=== PATIENT | male | born 1980 | race Hispanic/Latino ===

== ENCOUNTER → 2017-04-05 | Outpatient (CLI) | payer OTHER ==
--- NOTE | 2017-04-05 10:30 | REP ---
RIGHT SHOULDER, THREE VIEWS: HISTORY: Pain. There is no acute fracture or dislocation. The joint spaces are normal in appearance. IMPRESSION: There is no acute fracture or dislocation. Signed by Ata Adkins MD 04/05/2017 10:41 A
== END ==
LOC: M WUC 08:47
PROVIDERS: ATTEND Physician Assistant
DX: M25.511 Pain in right shoulder (principal)

== ENCOUNTER → 2019-02-24 | Outpatient (CLI) | payer OTHER ==
[~2019-02-24] MED LIST: KEFL500C17 PO
[2019-02-24 21:04] LABS: ALBUMIN 3.8 GM/DL (3.2-5.2); ALT/SGPT 64 U/L (12-78); BILIRUBIN,DIRECT 0.2 MG/DL (0.0-0.2); BILIRUBIN,TOTAL 0.5 MG/DL (0.2-1.0); BLOOD UREA NITROGEN 12 MG/DL (7-18); CALCIUM LEVEL 8.1 MG/DL (8.5-10.1); CARBON DIOXIDE LEVEL 27 MEQ/L (21-32); CHLORIDE LEVEL 103 MEQ/L (98-107); CREATININE FOR GFR 1.08 MG/DL (0.70-1.30); FREE T4 0.95 NG/DL (0.76-1.46); GLOMERULAR FILTRATION RATE > 60.0 (>60); GLUCOSE, FASTING 104 MG/DL (70-100); POTASSIUM SERUM 4.4 MEQ/L (3.5-5.1); SODIUM LEVEL 137 MEQ/L (136-145); TOTAL PROTEIN 7.3 GM/DL (6.4-8.2)
[2019-02-24 21:10] LABS: BASO % 0.8 % (0.0-1.0); EOS % 0.2 % (0.0-3.0); HEMATOCRIT 44.3 % (42.0-52.0); HEMOGLOBIN 14.7 g/dl (13.5-17.5); LYMPH % 21.6 % (24.0-44.0); MEAN CORPUSCULAR HEMOGLOBIN 28.7 pg (27.0-33.0); MEAN CORPUSCULAR HGB CONC 33.2 g/dl (32.0-36.5); MEAN CORPUSCULAR VOLUME 86.4 fl (80.0-96.0); MONO # 0.9 10^3/uL (0.0-0.8); MONO % 17.8 % (0.0-5.0); NEUTROPHILS # 2.8 10^3/uL (1.8-7.7); NEUTROPHILS % 59.6 % (36.0-66.0); PLATELET COUNT, AUTOMATED 139 10^3/uL (150-450); RED BLOOD COUNT 5.13 10^6/uL (4.30-6.10); WHITE BLOOD COUNT 4.8 10^3/uL (4.0-10.0)
[2019-02-26 11:00] LABS: HEPATITIS B SURFACE ANTIGEN NEGATIVE (NEGATIVE)
[2019-02-26 11:26] LABS: HEPATITIS C VIRUS ABY INDEX 0.1 INDEX (<0.8)
[2019-02-26 11:27] LABS: HEPATITIS B CORE ANTIBODY IGM NEGATIVE (NEGATIVE)
[2019-02-26 11:29] LABS: HEPATITIS A ANTIBODY IGM NEGATIVE (NEGATIVE)
[2019-02-27 08:58] LABS: EBV VIRAL CAPSID AG IgG >600.0 U/mL (0.0-17.9); EBV VIRAL CAPSID AG IgM <36.0 U/mL (0.0-35.9); Lyme Disease IgG Ab 18 kDa Ban Absent (.); Lyme Disease IgG Ab 23 kDa Ban Absent (.); Lyme Disease IgG Ab 28 kDa Ban Absent (.); Lyme Disease IgG Ab 30 kDa Ban Absent (.); Lyme Disease IgG Ab 39 kDa Ban Absent (.); Lyme Disease IgG Ab 41 kDa Ban Absent (.); Lyme Disease IgG Ab 45 kDa Ban Absent (.); Lyme Disease IgG Ab 58 kDa Ban Absent (.); Lyme Disease IgG Ab 66 kDa Ban Absent (.); Lyme Disease IgG Ab 93 kDa Ban Absent (.); Lyme Disease IgG West Blot Int Negative (.); Lyme Disease IgG/IgM Antibodie <0.91 ISR (0.00-0.90); Lyme Disease IgM Ab 23 kDa Ban Present (.); Lyme Disease IgM Ab 39 kDa Ban Absent (.); Lyme Disease IgM Ab 41 kDa Ban Absent (.); Lyme Disease IgM Ab Quantitati 1.56 index (0.00-0.79); Lyme Disease IgM West Blot Int Negative (.)
== END ==
LOC: M WUC 17:34
PROVIDERS: ATTEND Physician Assistant
DX: R50.9 Fever, unspecified (principal)

== ENCOUNTER 2019-03-28 09:02 | Emergency (ER) | payer OTHER ==
[~2019-03-28] VITALS: Ht 180.3 cm; Wt 86.4 kg
[2019-03-28 10:00] LABS: HEMATOCRIT 42.2 % (42.0-52.0); HEMOGLOBIN 14.2 g/dl (13.5-17.5); MEAN CORPUSCULAR HEMOGLOBIN 28.1 pg (27.0-33.0); MEAN CORPUSCULAR HGB CONC 33.6 g/dl (32.0-36.5); MEAN CORPUSCULAR VOLUME 83.6 fl (80.0-96.0); PLATELET COUNT, AUTOMATED 174 10^3/uL (150-450); RED BLOOD COUNT 5.05 10^6/uL (4.30-6.10); WHITE BLOOD COUNT 5.8 10^3/uL (4.0-10.0)
[2019-03-28 10:56] LABS: ERYTHROCYTE SEDIMENTATION RATE 3 mm/hr (0-15)
[2019-03-28] MEDS ORDERED: KEFL500C17 PO (11:00)
[2019-03-28 11:10] VITALS: BP 125/82
[2019-04-01 00:07] LABS: Lyme Disease IgG Ab 18 kDa Ban Absent (.); Lyme Disease IgG Ab 23 kDa Ban Present (.); Lyme Disease IgG Ab 28 kDa Ban Absent (.); Lyme Disease IgG Ab 30 kDa Ban Absent (.); Lyme Disease IgG Ab 39 kDa Ban Present (.); Lyme Disease IgG Ab 41 kDa Ban Present (.); Lyme Disease IgG Ab 45 kDa Ban Absent (.); Lyme Disease IgG Ab 58 kDa Ban Absent (.); Lyme Disease IgG Ab 66 kDa Ban Absent (.); Lyme Disease IgG Ab 93 kDa Ban Absent (.); Lyme Disease IgG West Blot Int Negative (.); Lyme Disease IgG/IgM Antibodie 3.01 ISR (0.00-0.90); Lyme Disease IgM Ab 23 kDa Ban Present (.); Lyme Disease IgM Ab 39 kDa Ban Present (.); Lyme Disease IgM Ab 41 kDa Ban Present (.); Lyme Disease IgM Ab Quantitati 8.35 index (0.00-0.79); Lyme Disease IgM West Blot Int Positive (.)
== END 2019-03-28 11:12 | disposition home or self-care (01) ==
LOC: M ED 09:02
DX: L03.116 Cellulitis of left lower limb (principal)

== ENCOUNTER → 2020-08-02 | Outpatient (REF) | payer OTHER ==
[2020-08-02 17:10] LABS: MONO SCRN NEGATIVE (NEGATIVE)
== END ==
LOC: M SFHCCLAY 10:46
PROVIDERS: ATTEND Family Medicine
DX: J03.90 Acute tonsillitis, unspecified (principal)

== ENCOUNTER 2020-09-17 02:06 | Emergency (ER) | payer OTHER ==
[~2020-09-17] VITALS: Ht 27.9 cm; Wt 91.1 kg
[2020-09-17 02:07] VITALS: BP 140/85
--- OUTSIDE RECORDS SUMMARY | 2020-09-17 02:11 | CCD ---
Author Author [facility] Organization [facility] Address Unknown Phone Unavailable Support Name Relationship Address Phone [place] [address] [facility] Next Of Kin [address] [place] [address] [facility] POLICE Next Of Kin [address] [place] [address] [facility] [place] [place] [address] [place] [address] [place] [address] Unavailable Re-disclosure Warning The records that you are about to access may contain information from federally-assisted alcohol or drug abuse programs. If such information is present, then the following federally mandated warning applies: This information has been disclosed to you from records protected by federal confidentiality rules (42 CFR part 2). The federal rules prohibit you from making any further disclosure of this information unless further disclosure is expressly permitted by the written consent of the person to whom it pertains or as otherwise permitted by 42 CFR part 2. A general authorization for the release of medical or other information is NOT sufficient for this purpose. The Federal rules restrict any use of the information to criminally investigate or prosecute any alcohol or drug abuse patient.The records that you are about to access may contain highly sensitive health information, the redisclosure of which is protected by Article 27-F of the [facility] Public Health law. If you continue you may have access to information: Regarding HIV / AIDS; Provided by facilities licensed or operated by the [facility] Office of Mental Health; or Provided by the [facility] Office for People With Developmental Disabilities. If such information is present, then the following [facility] mandated warning applies: This information has been disclosed to you from confidential records which are protected by state law. State law prohibits you from making any further disclosure of this information without the specific written consent of the person to whom it pertains, or as otherwise permitted by law. Any unauthorized further disclosure in violation of state law may result in a fine or snf sentence or both. A general authorization for the release of medical or other information is NOT sufficient authorization for further disc losure. Family History Family Member Name Family Member Gender Family Member Status Date o f Status Description Data Source(s) Unknown Unknown Problem MEDENT ([facility]) Unknown Male Problem MEDENT ([facility]) Unknown Female Encounters Encounter Providers Location Date Indications Data Source(s ) Outpatient [address] [facility] [address] 08/02/2020 12:00:00 AM EST eCW1 (Merged With [facility]) Unknown [address] [facility] [address] 08/02/2020 12:00:00 AM EST eCW1 (Merged With [facility]) Unknown [address] [facility] [address] 07/08/2020 12:00:00 AM EST eCW1 (Merged With [facility]) Outpatient [address] [facility] [address] 07/07/2020 12:00:00 AM EST eCW1 (Merged With [facility]) Unknown [address] [facility] [id number] 07/07/2020 12:00:00 AM EST eCW1 (Merged With [facility]) [facility] [address] [facility] [place] [address] 05/17/2020 12:00:00 AM EDT eCW1 (Merged With [facility]) Outpatient [address] [facility] [id number] 02/16/2020 12:00:00 AM EDT eCW1 (Merged With [facility]) Medications Medication Brand Name Start Date Product Form Dose Route Admi nistrative Instructions Pharmacy Instructions Status Indications Reaction Description Data Source(s) Metronidazole 0.0075 MG/MG Vaginal Gel Metronidazole 0 .75 % Metronidazole 0.75 % 02/16/2020 12:00:00 AM EDT 1.0 {application} suspended Metronidazole 0.75 % eCW1 (Pending Sale To [facility]) Metronidazole 0.0075 MG/MG Vaginal Gel Metronidazole 0 .75 % Metronidazole 0.75 % 02/16/2020 12:00:00 AM EDT 1.0 {application} active Metronidazole 0.75 % eCW1 (Pending Sale To [facility]) Metronidazole 0.0075 MG/MG Vaginal Gel Metronidazole 0 .75 % Metronidazole 0.75 % 02/16/2020 12:00:00 AM EDT 1.0 {application} suspended Metronidazole 0.75 % eCW1 (Pending Sale To [facility]) Metronidazole 0.0075 MG/MG Vaginal Gel Metronidazole 0 .75 % Metronidazole 0.75 % 02/16/2020 12:00:00 AM EDT 1.0 {application} active Metronidazole 0.75 % eCW1 (Pending Sale To [facility]) Metronidazole 0.0075 MG/MG Vaginal Gel Metronidazole 0 .75 % Metronidazole 0.75 % 02/16/2020 12:00:00 AM EDT 1.0 {application} active Metronidazole 0.75 % eCW1 (Pending Sale To [facility]) Metronidazole 0.0075 MG/MG Vaginal Gel Metronidazole 0 .75 % Metronidazole 0.75 % 02/16/2020 12:00:00 AM EDT 1.0 {application} active Metronidazole 0.75 % eCW1 (Pending Sale To [facility]) Insurance Providers Payer name Policy type / Coverage type Policy ID Covered constitution party ID Covered constitution party's relationship to fleming Policy Fleming Plan Information [facility] [id number] SP [id number] [facility] [id number] SP [id number] [facility] [id number] S [id number] [facility] Health Maintenance Organization (HMO) [id number] Self [id number] ANSI-Commercial [id number] ANSI-Commercial [id number] ANSI-Commercial [id number] ANSI-Commercial [id number] ANSI-Commercial [id number] ANSI-Commercial [id number] [facility] Health Maintenance Organization (O) [id number] Self [id number] [facility] Health Maintenance Organization ([facility]) [id number] Self [id number] ANSI-Commercial [id number] ANSI-Commercial [id number] ANSI-Commercial [id number] ANSI-Commercial [id number] ANSI-Commercial [id number] ANSI-Commercial [id number] Umr Commercial [id number] Self [id number] Umr Commercial [id number] Self [id number] ANSI-Commercial [id number] [employer] [id number] 0 [id number] [employer] PPO O [id number] S [id number] [employer] Medigap Part B [id number] Self [id number] [employer] Risk MGMNT Román [employer] Workers Compensation [id number] Self [id number] [employer] [id number] SP [id number] [employer] Medigap Part B [id number] Self [id number] [employer] Risk MGMNT Román [employer] Workers Compensation [id number] Self [id number] [employer] Workers Compensation Self [employer] Commercial Self [employer] Commercial Self Results ID Date Data Source GROUP A STREP CULTURE 08/02/2020 12:00:00 AM EST eCW1 ([facility]) Name Value Range Interpretation Code Description Data Oma rce(s) Supporting Document(s) GROUP A STREP CULTURE eCW1 ([facility]) ID Date Data Source MONO - MONO SCREEN 08/02/2020 12:00:00 AM EST eCW1 ([facility]) Name Value Range Interpretation Code Description Data Oma rce(s) Supporting Document(s) NEGATIVE NEGATIVE MONO SCRN eCW1 ([facility]) ID Date Data Source 309 07/07/2020 12:00:00 AM EST [facility] Name Value Range Interpretation Code Description Data Oma rce(s) Supporting Document(s) SARS-CoV2 Rapid Antigen [facility] This lab was ordered by [facility] and reported by [facility]. Procedure Vital Signs ID Date Data Source UNK Name Value Range Interpretation Code Description Data Source(s) Diastolic blood pressure 87 mm[Hg] 87 mm[Hg] eCW1 (Pending Sale To [facility]) Systolic blood pressure 140 mm[Hg] 140 mm[Hg] e CW1 (Pending Sale To [facility]) Body temperature 98.2 [degF] 98.2 [degF] eCW1 ( Pending Sale To [facility]) Respiratory rate 18 /min 18 /min eCW1 ([facility]) Heart rate 74 /min 74 /min eCW1 ([facility]) Body mass index (BMI) [Ratio] 28.65 kg/m2 28.65 kg/m2 eCW1 (Pending Sale To [facility]) Body height 69 [in_i] 69 [in_i] eCW1 ([facility]) Body weight [lb_av] eCW1 ([facility]) Body temperature 99.9 [degF] 99.9 [degF] eCW1 ( Pending Sale To [facility]) Respiratory rate 18 /min 18 /min eCW1 ([facility]) Heart rate 85 /min 85 /min eCW1 ([facility]) Body mass index (BMI) [Ratio] 28.94 kg/m2 28.94 kg/m2 eCW1 (Pending Sale To [facility]) Body height 69 [in_i] 69 [in_i] eCW1 ([facility]) Body weight [lb_av] eCW1 ([facility]) Diastolic blood pressure 83 mm[Hg] 83 mm[Hg] eCW1 (Pending Sale To [facility]) Systolic blood pressure 128 mm[Hg] 128 mm[Hg] e CW1 (Pending Sale To [facility]) Body temperature 99 [degF] 99 [degF] eCW1 ([facility]) Respiratory rate 18 /min 18 /min eCW1 ([facility]) Heart rate 75 /min 75 /min eCW1 ([facility]) Body mass index (BMI) [Ratio] 28.94 kg/m2 28.94 kg/m2 eCW1 (Pending Sale To [facility]) Body height 69 [in_i] 69 [in_i] eCW1 ([facility]) Body weight 196 [lb_av] 196 [lb_av] eCW1 ([facility]) Patient Treatment Plan of Care Planned Activity Planned Date Details Description Data Source (s) Metronidazole 0.0075 MG/MG Vaginal Gel 02/16/2020 12:00:00 AM EDT eCW1 (Pending Sale To [facility])
--- OUTSIDE RECORDS SUMMARY | 2020-09-17 02:11 | CCD ---
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 Role Phone Carolyne Emerson Unavailable PROBLEMS Type Condition ICD9-CM Code [id number] Code Onset Dates Condition S tatus SNOMED Code Notes Problem Seasonal allergies J30.2 Active 277482185 Problem Other atopic dermatitis L20.89 Active 07390401 Problem Internal hemorrhoids K64.8 Active 84421825 ALLERGIES No Known Allergies ENCOUNTERS from 1980 to 2020-08-10 Encounter Location Date Provider Diagnosis [facility] [address] [place] [address] Jul Carolyne Emerson Exudative tonsillitis J03.90 IMMUNIZATIONS No Information SOCIAL HISTORY Sex Assigned At : Social History Observation Description Sex Assigned At Unknown Education: Question Answer Notes Level of Education: Finished High School Audit Question Answer Notes Total Score: 0 Interpretation: Alcohol Education Language: Question Answer Notes Languages spoken: Guyanese Episcopal: Question Answer Notes Episcopal religiou, No religio us beliefs that would impact health care. Sexual Hx: Question Answer Notes Had sex in the last 12 months (vaginal, oral, or anal)? Yes Have you ever had an STD? No with Women only Use protection? Yes How often? All of the time Drug and Alcohol Question Answer Notes Total Score: 0 Interpretation: No problems reported Alcohol Screening: Question Answer Notes Did you have a drink containing alcohol in the past year? No Points 0 Interpretation Negative REASON FOR REFERRAL No Information VITAL SIGNS Weight 194 lbs lbs Jul, Height 69 in Jul, BMI 28.65 kg/m2 Jul, Heart Rate 74 /min Jul, Respiratory Rate 18 /min Jul, Temperature 98.2 degrees Fahrenheit Jul, Oximetry 100%ra Jul, Blood pressure systolic 140 mm Hg Jul, Blood pressure diastolic 87 mm Hg Jul, MEDICATIONS Medication SIG (Take, Route, Frequency, Duration) Notes Start Da te End Date Status Metronidazole 0.75 % 1 application Externally Twice a day for 14 day(s) Jan, Not-Taking PROCEDURES No Information RESULTS Component Value Reference Range MONO - MONO SCREEN Reviewed date:08/11/2020 07:08:15 Interpretation:Normal Performing Lab:[facility], [facility] [address] [address] , ,[place] [address] MONO SCRN NEGATIVE NEGATIVE GROUP A STREP CULTURE Reviewed date:08/11/2020 07:08:15 Interpretation:Normal Performing Lab:[facility], [facility] [address] [address] , ,[place] [address] Rapid Strep (Angela Strep A+ KEATON) Reviewed date:08/11/2020 07:08:15 Interpretation:Normal Performing Lab:[facility], ,[place] [address] Internal Controls Performed (Y/N) yes Rapid Strep (Angela Strep A+ KEATON) Result (Positive/Negative) negative REASON FOR VISIT white patches in mouth MEDICAL (GENERAL) HISTORY Type Description Date Medical History Internal hemorrhoids Medical History Lyme: summer 2018 Medical History COVID + (06/2020) Surgical History EGD 05/2016 Surgical History Colonoscopy 05/2016 Goals Section No Information Health Concerns No Information MEDICAL EQUIPMENT No Information MENTAL STATUS No Information FUNCTIONAL STATUS No Information ASSESSMENTS Encounter Date Diagnosis Assessment Notes Treatment Notes Treatm ent Clinical Notes Jul, Exudative tonsillitis (ICD-10 - J03.90) Patient evaluated with rapid strep. Rapid strep negative. Throat culture will be sent. Patient will also be evaluated with mono screen. Patient was counseled to monitor for any other symptoms. This is likely result of a viral infection. Further evaluation if symptoms worsen. PLAN OF TREATMENT Treatment Notes Assessment Notes Clinical Notes Exudative tonsillitis Patient evaluated with rapid strep. Rapid strep negative. Throat culture will be sent. Patient will also be evaluated with mono screen. Patient was counseled to monitor for any other symptoms. This is likely result of a viral infection. Further evaluation if symptoms worsen. Treatment Notes Test Name Order Date GROUP A STREP CULTURE 2020-08-10 Rapid Strep (Angela Strep A+ KEATON) 2020-08-10 MONO - MONO SCREEN 2020-08-10 Next Appt Details 04/2021: [place] Reason: Provider Name:Carolyne Idania, 2021-04 03:30:00 PM, [address] [place], [address], Insurance Providers Payer Name Payer Address Payer Phone Insured Name Patient Relati onship to Insured Coverage Start Date Coverage End Date [facility] [id number] [facility] [address] СВЕТЛАНА MARTI self
--- OUTSIDE RECORDS SUMMARY | 2020-09-17 02:11 | CCD ---
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 Name Role Phone Zen Ahmadi Unavailable PROBLEMS Type Condition ICD9-CM Code SSC96-MM Code Onset Dates Condition S tatus SNOMED Code Notes Problem Seasonal allergies J30.2 Active 317818212 Problem Other atopic dermatitis L20.89 Active 03365680 Problem Internal hemorrhoids K64.8 Active 42361520 ALLERGIES No Known Allergies ENCOUNTERS from 1980 to 2020-07-07 Encounter Location Date Provider Diagnosis [facility] [address] [place] [address] Jun Zen Ahmadi IMMUNIZATIONS No Information SOCIAL HISTORY Sex Assigned At : Social History Observation Description Sex Assigned At Unknown Education: Question Answer Notes Level of Education: Finished High School Audit Question Answer Notes Total Score: 0 Interpretation: Alcohol Education Language: Question Answer Notes Languages spoken: Icelandic Buddhism: Question Answer Notes Buddhism religiou, No religio us beliefs that would [...] REASON FOR REFERRAL No Information VITAL SIGNS No information MEDICATIONS Medication SIG (Take, Route, Frequency, Duration) Start Date En d Date Status Metronidazole 0.75 % 1 application Externally Twice a day fo r 14 day(s) Jan, Active PROCEDURES No Information RESULTS No Results REASON FOR VISIT fever MEDICAL (GENERAL) HISTORY Type Description Date Medical History Internal hemorrhoids Medical History Lyme: summer 2018 Surgical History EGD 05/2016 Surgical History Colonoscopy 05/2016 Goals Section No Information Health Concerns No Information MEDICAL EQUIPMENT No Information MENTAL STATUS No Information FUNCTIONAL STATUS No Information ASSESSMENTS No Information PLAN OF TREATMENT No Information Insurance Providers Payer Name Payer Address Payer Phone Insured Name Patient Relati onship to Insured Coverage Start Date Coverage End Date [facility] [place] [id number] [facility] [address] СВЕТЛАНА MARTI self
--- OUTSIDE RECORDS SUMMARY | 2020-09-17 02:11 | CCD ---
Author Author [facility] Organization [facility] Address Unknown Phone Unavailable Care Team Providers Care Slip Cover Maker Name Role Phone Carolyne Emerson Unavailable PROBLEMS Type Condition ICD9-CM Code AEG79-QI Code Onset Dates Condition S tatus SNOMED Code Notes Problem Seasonal allergies J30.2 Active 308544500 Problem Other atopic dermatitis L20.89 Active 20281558 Problem Internal hemorrhoids K64.8 Active 90077266 ALLERGIES No Known Allergies ENCOUNTERS from 1980 to 2020-07-13 Encounter Location Date Provider Diagnosis [facility] [address] [place] [address] Jun Carolyne Emerson Fever, unspecified fever cause R50.9 IMMUNIZATIONS No Information SOCIAL HISTORY Sex Assigned At : Social History Observation Description Sex Assigned At Unknown Education: Question Answer Notes Level of Education: Finished High School Audit Question Answer Notes Total Score: 0 Interpretation: Alcohol Education Language: Question Answer Notes Languages spoken: Greenlandic Sikhism: Question Answer Notes Sikhism religiou, No religio us beliefs that would [...] FOR REFERRAL No Information VITAL SIGNS Weight 196 lbs lbs Jun, Height 69 in Jun, BMI 28.94 kg/m2 Jun, Heart Rate 85 /min Jun, Respiratory Rate 18 /min Jun, Temperature 99.9 degrees Fahrenheit Jun, Oximetry 97%ra Jun, MEDICATIONS Medication SIG (Take, Route, Frequency, Duration) Notes Start Da te End Date Status Metronidazole 0.75 % 1 application Externally Twice a day for 14 day(s) Jan, Active PROCEDURES No Information RESULTS Component Value Reference Range Rapid Flu (Angela Influenza A+B KEATON) Reviewed date:07/07/2020 11:33:21 Interpretation: Performing Lab:[facility], [place] [address] Internal Controls Performed (Y/N) yes Result A (Positive/Negative) negative Result B (Positive/Negative) negative REASON FOR VISIT fever MEDICAL (GENERAL) HISTORY Type Description Date Medical History Internal hemorrhoids Medical History Lyme: summer 2018 Surgical History EGD 05/2016 Surgical History Colonoscopy 05/2016 Goals Section No Information Health Concerns No Information MEDICAL EQUIPMENT No Information MENTAL STATUS No Information FUNCTIONAL STATUS No Information ASSESSMENTS Encounter Date Diagnosis Assessment Notes Treatment Notes Treatm ent Clinical Notes Jun, Fever, unspecified fever cause (ICD-10 - R50.9) Rapid flu test negative. Patient was offered a COVID test, he declined testing saying that he would go to [facility] urgent [facility] to get a rapid test. He was asked to call our office after he has testing done with testing results. PLAN OF TREATMENT Treatment Notes Assessment Notes Clinical Notes Fever, unspecified fever cause Rapid flu test negative. Patient was offered a COVID test, he declined testing saying that he would go to [facility] urgent care to get a rapid test. He was asked to call our office after he has testing done with testing results. Next Appt Details as scheduled Reason: Insurance Providers Payer Name Payer Address Payer Phone Insured Name Patient Relati onship to Insured Coverage Start Date Coverage End Date [facility] [place] [place] [address] [facility] [address] СВЕТЛАНА MARTI
--- OUTSIDE RECORDS SUMMARY | 2020-09-17 02:11 | CCD ---
Author Author [facility] Organization [facility] Address Unknown Phone Unavailable Care Team Providers Care Eating Disorder Specialist Name Role Phone Carolyne Emerson Unavailable PROBLEMS Type Condition ICD9-CM Code XIL98-KE Code Onset Dates Condition S tatus SNOMED Code Notes Problem Seasonal allergies J30.2 Active 968508713 Problem Other atopic dermatitis L20.89 Active 15932897 Problem Internal hemorrhoids K64.8 Active 93677190 ALLERGIES No Known Allergies ENCOUNTERS from 1980 to 2020-07-11 Encounter Location Date Provider Diagnosis [facility] [address] [place] [address] Jun Carolyne Emerson IMMUNIZATIONS No Information SOCIAL HISTORY Sex Assigned At : Social History Observation Description Sex Assigned At Unknown Education: Question Answer Notes Level of Education: Finished High School Audit Question Answer Notes Total Score: 0 Interpretation: Alcohol Education Language: Question Answer Notes Languages spoken: Brazilian Lutheran: Question Answer Notes Lutheran religiou, No religio us beliefs that would [...] Information RESULTS No Results REASON FOR VISIT positive covid MEDICAL (GENERAL) HISTORY Type Description Date Medical [...] Insured Coverage Start Date Coverage End Date [facility] [id number] [facility] [address] СВЕТЛАНА MARTI self
--- OUTSIDE RECORDS SUMMARY | 2020-09-17 02:11 | CCD ---
Author Author [facility] Organization [facility] Address Unknown Phone Unavailable Care Team Providers Care Member Certification Manager Name Role Phone Carolyne Emerson Unavailable PROBLEMS Type Condition ICD9-CM Code [id number] Code Onset Dates Condition S tatus SNOMED Code Notes Problem Seasonal allergies J30.2 Active 622253690 Problem Other atopic dermatitis L20.89 Active 03462027 Problem Internal hemorrhoids K64.8 Active 69355111 ALLERGIES No Known Allergies ENCOUNTERS from 1980 to 2020-08-02 Encounter Location Date Provider Diagnosis [facility] [address] [place] [address] Jul Carolynemamie Dowoelucianan IMMUNIZATIONS No Information SOCIAL HISTORY Sex Assigned At : Social History Observation Description Sex Assigned At Unknown Education: Question Answer Notes Level of Education: Finished High School Audit Question Answer Notes Total Score: 0 Interpretation: Alcohol Education Language: Question Answer Notes Languages spoken: Eritrean Pentecostal: Question Answer Notes Pentecostal religiou, No religio us beliefs that would [...] day(s) Jan, Not-Taking PROCEDURES No Information RESULTS No Results REASON FOR VISIT white patches in mouth MEDICAL (GENERAL) HISTORY Type Description Date Medical History Internal hemorrhoids Medical History Lyme: summer 2018 Medical History COVID + (06/2020) Surgical History EGD 05/2016 Surgical History Colonoscopy 05/2016 Goals Section No Information Health Concerns No Information MEDICAL EQUIPMENT No Information MENTAL STATUS No Information FUNCTIONAL STATUS No Information ASSESSMENTS No Information PLAN OF TREATMENT Next Appt Details Provider Name:Carolyne Emerson, 2021-04 03:30:00 PM, [address] [place], [address], Insurance Providers Payer Name Payer Address Payer Phone Insured Name Patient Relati onship to Insured Coverage Start Date Coverage End Date [facility] [id number] [facility] [id number] СВЕТЛАНА HERNANDEZ
--- OUTSIDE RECORDS SUMMARY | 2020-09-17 02:59 | CCD ---
Author Author [facility] Organization [facility] Address Unknown Phone Unavailable Support Name Relationship Address Phone [place] [address] [facility] Next Of Kin [address] [place] [address] [facility] POLICE Next Of [place] [address] [place] [address] [facility] [address] [place] [address] [place] [address] Unavailable Re-disclosure Warning The records that you [...] is protected by Article 27-F of the [facility] Public Health law. If you continue you may have access to information: Regarding HIV / AIDS; Provided by facilities licensed or operated by the [facility] Office of Mental Health; or Provided by the [facility] Office for People With Developmental Disabilities. If such information is present, then the following [facility] mandated warning applies: This information has [...] law may result in a fine or chcf sentence or both. A general authorization for the release of medical or other information is NOT sufficient authorization for further disc losure. Family History Family Member Name Family Member Gender Family Member Status Date o f Status Description Data Source(s) Unknown Unknown Problem MEDENT ([facility]) Unknown Male Problem MEDENT ([facility]) Unknown Female Encounters Encounter Providers Location Date Indications Data Source(s ) Outpatient [address] [facility] [id number] 08/02/2020 12:00:00 AM EST [facility] Unknown [address] [facility] [id number] 08/02/2020 12:00:00 AM EST [facility]) Unknown [address] [facility] [id number] 07/08/2020 12:00:00 AM EST [facility]CW1 [facility]) Outpatient [address] [facility] [id number] 07/07/2020 12:00:00 AM EST [facility]CW1 [facility]) Unknown [address] [facility] [id number] 07/07/2020 12:00:00 AM EST [facility]CW1 [facility]) [facility] [address] [facility] [place] [id number] 05/17/2020 12:00:00 AM EDT eCW1 [facility]) Outpatient [address] [facility] [id number] 02/16/2020 12:00:00 AM EDT [facility]CW1 [facility]) Medications Medication Brand Name Start Date Product Form Dose Route Admi nistrative Instructions Pharmacy Instructions Status Indications Reaction Description Data Source(s) Metronidazole 0.0075 MG/MG Vaginal Gel Metronidazole 0 .75 % Metronidazole 0.75 % 02/16/2020 12:00:00 AM EDT 1.0 {application} suspended Metronidazole 0.75 % eCW1 ([facility]) Metronidazole 0.0075 MG/MG Vaginal Gel Metronidazole 0 .75 % Metronidazole 0.75 % 02/16/2020 12:00:00 AM EDT 1.0 {application} active Metronidazole 0.75 % eCW1 ([facility]) Metronidazole 0.0075 MG/MG Vaginal Gel Metronidazole 0 .75 % Metronidazole 0.75 % 02/16/2020 12:00:00 AM EDT 1.0 {application} suspended Metronidazole 0.75 % eCW1 ([facility]) Metronidazole 0.0075 MG/MG Vaginal Gel Metronidazole 0 .75 % Metronidazole 0.75 % 02/16/2020 12:00:00 AM EDT 1.0 {application} active Metronidazole 0.75 % eCW1 ([facility]) Metronidazole 0.0075 MG/MG Vaginal Gel Metronidazole 0 .75 % Metronidazole 0.75 % 02/16/2020 12:00:00 AM EDT 1.0 {application} active Metronidazole 0.75 % eCW1 ([facility]) Metronidazole 0.0075 MG/MG Vaginal Gel Metronidazole 0 .75 % Metronidazole 0.75 % 02/16/2020 12:00:00 AM EDT 1.0 {application} active Metronidazole 0.75 % eCW1 ([facility]) Insurance Providers Payer name Policy type / Coverage type Policy ID Covered constitution party ID Covered constitution party's relationship to fleming Policy Fleming Plan Information [facility] [id number] SP [id number] [facility] [id number] SP [id number] [facility] [id number] S [id number] [facility] Health Maintenance Organization (HMO) [id number] Self [id number] ANSI-Commercial [id number] ANSI-Commercial [id number] ANSI-Commercial [id number] ANSI-Commercial [id number] ANSI-Commercial [id number] ANSI-Commercial [id number] [facility] Health Maintenance Organization (O) [id number] Self [id number] [facility] Health Maintenance Organization ([facility]) [id number] Self [id number] ANSI-Commercial [id number] ANSI-Commercial [id number] ANSI-Commercial [id number] ANSI-Commercial [id number] ANSI-Commercial [id number] ANSI-Commercial [id number] Umr Commercial [id number] Self [id number] Umr Commercial [id number] Self [id number] ANSI-Commercial [id number] [employer] [id number] 0 [id number] [employer] PPO O [id number] S [id number] [employer] Medigap Part B [id number] Self [id number] [employer] Risk [employer] Workers Compensation [id number] Self [id number] [employer] [id number] SP [id number] [employer] Medigap Part B [id number] Self [id number] [employer] Risk [employer] Workers Compensation [id number] Self [id number] [employer] Workers Compensation Self [employer] Commercial Self [employer] Commercial Self Results ID Date Data Source GROUP A STREP CULTURE 08/02/2020 12:00:00 AM EST eCW1 ([facility]) Name Value Range Interpretation Code Description Data Oma rce(s) Supporting Document(s) GROUP A STREP CULTURE eCW1 ([facility]) ID Date Data Source MONO - MONO SCREEN 08/02/2020 12:00:00 AM EST eCW1 ([facility]) Name Value Range Interpretation Code Description Data Oma rce(s) Supporting Document(s) NEGATIVE NEGATIVE MONO SCRN [facility] ID Date Data Source 309 07/07/2020 12:00:00 AM EST [facility] Name Value Range Interpretation Code Description Data Oma rce(s) Supporting Document(s) SARS-CoV2 Rapid Antigen [facility] This lab was ordered by [facility] and reported by [facility]. Procedure Vital Signs ID Date Data Source UNK Name Value Range Interpretation Code Description Data Source(s) Diastolic blood pressure 87 mm[Hg] 87 mm[Hg] eCW1 ([facility]) Systolic blood pressure 140 mm[Hg] 140 mm[Hg] e CW1 ([facility]) Body temperature 98.2 [degF] 98.2 [degF] eCW1 ( [facility]) Respiratory rate 18 /min 18 /min eCW1 ([facility]) Heart rate 74 /min 74 /min eCW1 ([facility]) Body mass index (BMI) [Ratio] 28.65 kg/m2 28.65 kg/m2 eCW1 ([facility]) Body height 69 [in_i] 69 [in_i] eCW1 ([facility]) Body weight [lb_av] eCW1 ([facility]) Body temperature 99.9 [degF] 99.9 [degF] eCW1 ( [facility]) Respiratory rate 18 /min 18 /min eCW1 ([facility]) Heart rate 85 /min 85 /min eCW1 ([facility]) Body mass index (BMI) [Ratio] 28.94 kg/m2 28.94 kg/m2 eCW1 ([facility]) Body height 69 [in_i] 69 [in_i] eCW1 ([facility]) Body weight [lb_av] eCW1 ([facility]) Diastolic blood pressure 83 mm[Hg] 83 mm[Hg] eCW1 ([facility]) Systolic blood pressure 128 mm[Hg] 128 mm[Hg] e CW1 ([facility]) Body temperature 99 [degF] 99 [degF] eCW1 ([facility]) Respiratory rate 18 /min 18 /min eCW1 ([facility]) Heart rate 75 /min 75 /min eCW1 ([facility]) Body mass index (BMI) [Ratio] 28.94 kg/m2 28.94 kg/m2 eCW1 ([facility]) Body height 69 [in_i] 69 [in_i] eCW1 ([facility]) Body weight 196 [lb_av] 196 [lb_av] eCW1 ([facility]) Patient Treatment Plan of Care Planned Activity Planned Date Details Description Data Source (s) Metronidazole 0.0075 MG/MG Vaginal Gel 02/16/2020 12:00:00 AM EDT eCW1 ([facility])
== END 2020-09-17 02:49 | disposition left against medical advice (07) ==
LOC: M ED 02:06
DX: Z53.21 Procedure and treatment not carried out due to patient leaving prior to being seen by health care provider (principal)

== ENCOUNTER → 2023-01-04 | Outpatient (REF) | payer OTHER ==
[2023-01-04 17:31] LABS: BLOOD UREA NITROGEN 17 MG/DL (9-23); CALCIUM LEVEL 8.9 MG/DL (8.5-10.1); CARBON DIOXIDE LEVEL 30 MMOL/L (20-31); CHLORIDE LEVEL 103 MMOL/L (98-107); CHOLESTEROL LEVEL 174 MG/DL (<200); CREATININE FOR GFR 0.81 MG/DL (0.70-1.30); GLOMERULAR FILTRATION RATE > 60.0 (>60); GLUCOSE, FASTING 93 MG/DL (60-100); HDL CHOLESTEROL 59.8 MG/DL (>40); LDL CHOLESTEROL 100.2 MG/DL (<100); NON-HDL-C 114.2 MG/DL; POTASSIUM SERUM 4.8 MMOL/L (3.5-5.1); SODIUM LEVEL 140 MMOL/L (136-145); TRIGLYCERIDES LEVEL 70 MG/DL (<150)
== END ==
LOC: M SFHCCLAY 09:29
PROVIDERS: ATTEND Nurse Practitioner Family
DX: R03.0 Elevated blood-pressure reading, without diagnosis of hypertension (principal)